=== PATIENT | male | born 1945 | race Caucasian/White ===

== ENCOUNTER 2018-05-11 15:50 | Emergency (ER) | payer MEDICARE ==
[2018-05-11 16:00] VITALS: BP 164/80; PULSE 65; RESP 16; TEMP 98.4
--- NOTE | 2018-05-11 16:26 | ED ---
Extremity Problem HPI - General Chief complaint: Extremity Problem,Nontraumatic Stated complaint: Hip pain Time Seen by Provider: 05/11/18 16:06 Source: patient, RN notes reviewed Mode of arrival: ambulatory Limitations: no limitations - History of Present Illness Initial comments: This is a 72-year-old male who presents to the emergency department with chief complaint of left hip pain. Patient reports an achy left hip pain for the past one week. He states that pain is made worse with bearing weight. He states that the pain has progressively worsened and now he is having difficulty ambulating because he is afraid he will fall. He denies any falls, injuries or trauma. Patient does state that he started exercising at home one month ago. He states that he does exercises of the hips with a band. He states that 2 weeks ago he started a new exercise where he places a band around his feet and performs hip abduction. Patient states he is having difficulty sleeping due to achiness in his hip. He also reports radiation of pain from the hip down to his knee. Denies any back or neck pain. Denies fevers or chills, chest pain or shortness of breath, abdominal pain, nausea or vomiting, numbness or tingling. - Related Data Allergies Allergy/AdvReac Type Severity Reaction Status Date / Time No Known Allergies Allergy Verified 05/11/18 16:00 Review of Systems ROS Statement: Those systems with pertinent positive or pertinent negative responses have been documented in the HPI. ROS Other: All systems not noted in ROS Statement are negative. Past Medical History Past Medical History: Diabetes Mellitus History of Any Multi-Drug Resistant Organisms: None Reported Additional Past Surgical History / Comment(s): bilateral knee surgery. skin cx. Past Psychological History: No Psychological Hx Reported Smoking Status: Never smoker Past Alcohol Use History: Occasional Past Drug Use History: None Reported General Exam - General Exam Comments Initial Comments: General: Awake and alert, well-developed; in no apparent distress. HEENT: Head atraumatic, normocephalic. Pupils are equal, round and reactive to light. Extraocular movements intact. Oropharynx moist without erythema or exudate. Neck: Supple. Normal ROM. Cardiovascular: Regular rate and rhythm. No murmurs, rubs or gallops. Chest symmetrical. Respiratory: Lungs clear to auscultation bilaterally. No wheezes, rales or rhonchi. Normal respiratory effort with no use of accessory muscles. Musculoskeletal: Normal range of motion of the left hip. Tenderness over the greater trochanter. Sensation is intact. Pedal pulses are 2+ equal and palpable bilaterally. Skin: [place], warm and dry without rashes or lesions. 1+ pitting edema bilateral lower extremities. Neurological: Alert and oriented x3. CN II-XII grossly intact. Speech is fluent and answers are appropriate. No focal neuro deficits. Psychiatric: Normal mood and affect. No overt signs of depression or anxiety noted. Limitations: no limitations Back exam: Present: normal inspection, full ROM, paraspinal tenderness (left lumbar). Absent: vertebral tenderness Course Vital Signs 05/11/18 15:56 Temperature 98.4 F Pulse Rate 65 Respiratory 16 Rate Blood Pressure 164/80 O2 Sat by Pulse 98 Oximetry Medical Decision Making - Medical Decision Making This is a 72-year-old male who presents to the emergency department with chief complaint of left hip pain. Patient reports hip pain for the past one week. There is tenderness on palpation of the greater trochanter. Normal ROM of the left hip. X-ray was obtained which revealed no acute abnormalities. Patient is likely suffering from a muscle or ligamentous strain. He has been performing hip exercises at home for the past 2 weeks. I recommended that he perform gentle stretching, use a heating pad and take ibuprofen or Tylenol as needed for pain. Recommended following up with orthopedics for further evaluation. Recommended possible physical therapy. Patient's vital signs are stable and he is in no acute distress. He will be discharged home at this time. He is in agreement with plan and voices understanding. All questions were answered. - Radiology Data Radiology results: report reviewed X-ray left hip and AP pelvis impression: Negative pelvis and left hip exam. Disposition Clinical Impression: Left hip pain Disposition: HOME SELF-CARE Condition: Good Instructions: Hip Sprain (ED), Hip Pain (ED) Additional Instructions: Please follow-up with orthopedics for further evaluation. Please follow up with primary care provider within 1-2 days. Return to emergency department if symptoms should worsen or any concerns arise. Is patient prescribed a controlled substance at d/c from ED?: No Referrals: [facility],Clinic [Primary Care Provider] - 1-2 days Jace Kathleen DO [Doctor of Osteopathic Medicine] - 1-2 days Time of Disposition: 17:07
--- NOTE | 2018-05-11 16:47 | XR ---
EXAMINATION TYPE: XR Hip LT and AP Pelvis DATE OF EXAM: 05/11/2018 COMPARISON: NONE HISTORY: Pain and swelling TECHNIQUE: A single AP view of the pelvis is obtained. Two views of the left hip are obtained. FINDINGS: The pelvic ring is intact. Proximal left femur and hip joint appear intact. There is vascul ar calcification. There is no evidence for fracture. Sacroiliac joints appear normal. IMPRESSION: Negative pelvis and left hip exam.
== END 2018-05-11 17:17 | disposition home or self-care (01) ==
LOC: EC 15:50
DX: M25.552 Pain in left hip (principal); Z85.828 Personal history of other malignant neoplasm of skin
CPT/HCPCS: 73502; 99283